=== PATIENT | female | born 1995 | race Caucasian/White ===

== ENCOUNTER 2023-05-06 04:00 | Day surgery (SDC) | payer OTHER ==
[2023-05-06] VITALS (216 sets, daily range): BP systolic 89–127; BP diastolic 48–90
[~2023-05-06] VITALS: Ht 177.8 cm; Wt 72.6 kg
[2023-05-06] MEDS ORDERED: XANAX2 MG PO (08:59)
[2023-05-06] MEDS ORDERED: FLEXERIL5 M1 PO (09:00)
[2023-05-06] MEDS ORDERED: VIBRAMYCIN100 M2 PO (09:00)
[2023-05-06] MEDS ORDERED: VENTOLIN HFA108 MCG (09:01)
[2023-05-06 09:23] LABS: BASO% 0.3 % (0-3); EOS% 4.3 % (0-8); HEMATOCRIT 23.4 % (37.0-47.0); HEMOGLOBIN 7.4 g/dl (12.0-16.0); IMMATURE GRANULOCYTES 0.1 % (0.0-5.0); MEAN CELL VOLUME 80.1 fL CALC (80.0-100.0); MEAN CORPUSCULAR HGB 25.3 pG CALC (26.0-32.0); MEAN CORPUSCULAR HGB CONC 31.6 g/dL CAL (32.0-36.0); MONO% 7.4 % (2-13); NEUT# 4.93 thou/uL (2.00-7.15); NEUT% 69.9 % (42-76); RED BLOOD COUNT 2.92 mill/uL (4.20-5.60); RED CELL DISTRI WIDTH 15.1 % (11.5-15.5)
[2023-05-06 09:55] LABS: ALBUMIN 3.6 g/dL (3.2-5.0); ALKALINE PHOSPHATASE 242 u/l (38-126); ANION GAP 10 (6-22 (CALC)); BILIRUBIN, TOTAL 0.9 mg/dL (0.02-1.3); BUN 16 mg/dL (7-17); BUN/CREATININE RATIO 22 (12-20 (CALC)); CARBON DIOXIDE 22 mmol/l (22-30); CHLORIDE 110 mmol/l (95-108); CREATININE 0.7 mg/dL (0.5-1.0); GFR FOR AFR.AMER. > 60 ML/MIN (>=60 (CALC)); GFR OTHER RACES > 60 ML/MIN (>=60 (CALC)); POTASSIUM 3.6 mmol/l (3.5-5.1); SGOT/AST 25 u/l (14-36); SODIUM 138 mmol/l (137-146); TOTAL PROTEIN 7.4 g/dL (6.3-8.2)
[2023-05-06] MEDS ORDERED: CLONIDINE0.1 MG PO (16:47)
[2023-05-06] MEDS ORDERED: NALTREXONE50 MG PO (16:47)
[2023-05-06] MEDS ORDERED: KLONOPIN2 MG PO (16:48)
[2023-05-07 04:01] VITALS: BP 124/81
[2023-05-07 05:02] LABS: HEMATOCRIT 24.8 % (37.0-47.0); HEMOGLOBIN 8.1 g/dl (12.0-16.0); IMMATURE GRANULOCYTES 0.2 % (0.0-5.0); LYMPH% 13.7 % (15-41); MEAN CELL VOLUME 78.5 fL CALC (80.0-100.0); MEAN CORPUSCULAR HGB 25.6 pG CALC (26.0-32.0); MEAN CORPUSCULAR HGB CONC 32.7 g/dL CAL (32.0-36.0); MONO% 1.2 % (2-13); NEUT# 4.22 thou/uL (2.00-7.15); NEUT% 84.9 % (42-76); RED BLOOD COUNT 3.16 mill/uL (4.20-5.60)
[2023-05-07 05:12] LABS: ALBUMIN 3.5 g/dL (3.2-5.0); ALKALINE PHOSPHATASE 250 u/l (38-126); ANION GAP 13 (6-22 (CALC)); BUN 11 mg/dL (7-17); BUN/CREATININE RATIO 18 (12-20 (CALC)); CARBON DIOXIDE 22 mmol/l (22-30); CHLORIDE 113 mmol/l (95-108); CREATININE 0.6 mg/dL (0.5-1.0); GFR FOR AFR.AMER. > 60 ML/MIN (>=60 (CALC)); GFR OTHER RACES > 60 ML/MIN (>=60 (CALC)); MAGNESIUM 2.6 mg/dL (1.6-2.3); POTASSIUM 4.3 mmol/l (3.5-5.1); SGOT/AST 25 u/l (14-36); SODIUM 143 mmol/l (137-146); TOTAL PROTEIN 7.3 g/dL (6.3-8.2)
[2023-05-07 07:59] VITALS: BP 122/77
[2023-05-07 08:24] VITALS: BP 127/84
[2023-05-07 08:54] VITALS: BP 127/84
== END 2023-05-07 15:10 | disposition home or self-care (01) | DRG 897 ==
LOC: ANR 04:00 → MS2 04:00 → ANR 09:00
PROVIDERS: ATTEND Anesthesiology Critical Care Medicine
DX: F11.20 Opioid dependence, uncomplicated (principal)
CPT/HCPCS: J0131; J2354; J3475